=== PATIENT | female | born 1965 | race Caucasian/White ===

== ENCOUNTER 2016-11-02 19:47 | Emergency (ER) | payer SELFPAY ==
--- NOTE | 2016-11-02 20:40 | ER Document Report ---
ED Psych Disorder / Suicide - General Chief Complaint: Psych Problem Stated Complaint: IVC WITH PAPERS Time Seen by Provider: 11/02/16 20:04 Mode of Arrival: Ambulatory Information source: Patient, Law Enforcement Notes: This is a 51-year-old female with a history of COPD who presents with IVC paperwork for suicidal ideation. Law-enforcement states that they were called out to the house yesterday after a domestic argument and were told that patient was threatening to cut herself with her throat with a knife. Upon their arrival patient ran into the durán. They did find a knife in the yard. Per the officer, [facility] was contacted by the family today. [employer] acoustical material worker did go out to the house to evaluate the patient and then after her evaluation IVC paperwork was obtained to the police magistrate initiated by [facility]. Patient at this time states that she has no suicidal ideation. She does admit to alcohol use and Xanax use today. TRAVEL OUTSIDE OF THE [place] IN LAST 30 DAYS: No Past Medical History - Social History Smoking Status: Current Every Day Smoker Frequency of alcohol use: Occasional Drug Abuse: Marijuana Family History: Reviewed & Not Pertinent Patient has suicidal ideation: Yes Patient has homicidal ideation: No Renal/ Medical History: Denies: Hx Peritoneal Dialysis Review of Systems - Review of Systems Constitutional: denies: Chills, Fever EENT: No symptoms reported Cardiovascular: No symptoms reported. denies: Chest pain, Palpitations Respiratory: No symptoms reported Gastrointestinal: No symptoms reported Genitourinary: No symptoms reported Musculoskeletal: No symptoms reported Skin: Other - sunburn Hematologic/Lymphatic: No symptoms reported Neurological/Psychological: See HPI Physical Exam - Vital signs Vitals: Temp Pulse Resp BP Pulse Ox 98.3 F 81 18 108/76 95 11/02/16 19:56 11/02/16 19:56 11/02/16 19:56 11/02/16 19:56 11/02/16 19:56 - Notes Notes: PHYSICAL EXAMINATION: GENERAL: Thin, disheveled adult female with sunburn on her arms, calm and conversant, no acute distress HEAD: Atraumatic, normocephalic. EYES: Pupils equal round and reactive to light, extraocular movements intact, sclera anicteric, conjunctiva are normal. NECK: Normal range of motion, supple without lymphadenopathy LUNGS: Breath sounds clear to auscultation bilaterally and equal. No wheezes rales or rhonchi. HEART: Regular rate and rhythm without murmurs ABDOMEN: Soft, nontender, normoactive bowel sounds. EXTREMITIES: Normal range of motion, no pitting or edema. NEUROLOGICAL: Cranial nerves grossly intact. No gross focal motor or sensory deficits appreciated. PSYCH: Normal mood, somewhat agitated affect. No AVH. Denies current SI/HI SKIN: Warm, Dry, sunburn noted to dorsal BUE Course - Re-evaluation Re-evalutation: 11/02/16 20:40 Patient presents with IVC paperwork that was initiated by mobile [employer] today. Will obtain screening labs and patient will receive further mental health evaluation the morning. - Vital Signs Vital signs: Temp Pulse Resp BP Pulse Ox 98.3 F 81 18 108/76 95 11/02/16 19:56 11/02/16 19:56 11/02/16 19:56 11/02/16 19:56 11/02/16 19:56 - Laboratory Result Diagrams: 11/02/16 20:15 11/02/16 20:15 Discharge - Discharge Clinical Impression: Alcohol abuse Suicide gesture Qualifiers: Encounter type: initial encounter Qualified Code(s): X83.8XXA - Intentional self-harm by other specified means, initial encounter Condition: Stable Disposition: PSYCH HOSP/UNIT
[2016-11-02 20:47] LABS: ABSOLUTE BASOPHILS # (AUTO) 0.2 10^3/uL (0.0-0.2); ABSOLUTE EOSINOPHILS # (AUTO) 0.1 10^3/uL (0.0-0.6); ABSOLUTE LYMPHOCYTES (AUTO) 0.9 10^3/uL (0.5-4.7); ABSOLUTE MONOCYTES (AUTO) 0.4 10^3/uL (0.1-1.4); ABSOLUTE NEUT (AUTO) 5.1 10^3/uL (1.7-8.2); BASOPHILS % (AUTO) 2.8 % (0-2); EOSINOPHILS % (AUTO) 1.8 % (0-6); HEMATOCRIT 47.9 % (36.0-47.0); HEMOGLOBIN 16.1 g/dL (12.0-15.5); HGB HCT DIFFERENCE 0.4; LYMPHOCYTES % (AUTO) 12.8 % (13-45); MEAN CORPUSCULAR HEMOGLOBIN 36.4 pg (27.0-33.4); MEAN CORPUSCULAR HGB CONC 33.6 g/dL (32.0-36.0); MEAN CORPUSCULAR VOLUME 108 fl (80-97); MONOCYTES % (AUTO) 6.4 % (3-13); RED BLOOD COUNT 4.43 10^6/uL (3.72-5.28); RED CELL DISTRIBUTION WIDTH 14.4 % (11.5-14.0); SEGMENTED NEUTROPHILS % (AUTO) 76.2 % (42-78); WHITE BLOOD COUNT 6.7 10^3/uL (4.0-10.5)
[2016-11-02 20:51] LABS: APPEARANCE,URINE CLEAR; BILIRUBIN,URINE NEGATIVE (NEGATIVE); GLUCOSE, URINE NEGATIVE (NEGATIVE); KETONES,URINE NEGATIVE (NEGATIVE); LEUKOCYTE ESTERASE,URINE NEGATIVE (NEGATIVE); NITRITE,URINE NEGATIVE (NEGATIVE); PROTEIN,URINE NEGATIVE (NEGATIVE); URINE SPECIFIC GRAVITY 1.002; UROBILINOGEN,URINE NEGATIVE mg/dL (<2.0)
[2016-11-02 20:56] LABS: ALANINE AMINOTRANSFERASE 38 U/L (9-52); ALBUMIN 4.9 g/dL (3.5-5.0); ALCOHOL 116 mg/dL (NONE DETECTED); ALKALINE PHOSPHATASE 112 U/L (38-126); ANION GAP 14 (5-19); ASPARTATE AMINO TRANSFERASE 42 U/L (14-36); BILIRUBIN,DIRECT 0.3 mg/dL (0.0-0.4); BILIRUBIN,TOTAL 0.6 mg/dL (0.2-1.3); BLOOD UREA NITROGEN 7 mg/dL (7-20); CALCIUM 9.6 mg/dL (8.4-10.2); CARBON DIOXIDE 25 mmol/L (22-30); CHLORIDE 106 mmol/L (98-107); CREATINE KINASE 309 U/L (30-135); GLUCOSE 69 mg/dL (75-110); POTASSIUM 4.1 mmol/L (3.6-5.0); SODIUM 144.8 mmol/L (137-145); TOTAL PROTEIN 7.9 g/dL (6.3-8.2)
[2016-11-02 21:10] LABS: URINE BARBITURATES SCREEN NEGATIVE; URINE METHADONE SCREEN NEGATIVE; URINE OPIATES LOW NEGATIVE; URINE PHENCYCLIDINE SCREEN NEGATIVE
[2016-11-02] MEDS ORDERED: CHLORPROMAZINE HCL INJ 25 MG/1 ML AMPULE IM ONE (21:10)
[2016-11-02 21:24] LABS: CREATINE KINASE MB 2.42 ng/mL (<4.55); TROPONIN I < 0.012 ng/mL
[2016-11-03] MEDS ORDERED: NICOTINE 21 MG/24 HR PATCH.TD24 TD ONE (11:22)
--- NOTE | 2016-11-03 11:22 | ER Document Report ---
Doctor's Note Notes: 11/03/16 11:20 Rounds: Chart reviewed and patient interview. Patient is being evaluated for suicidal thoughts. Vital signs of all been essentially normal. Lab studies were normal except for hemoglobin of 16.1 (patient smokes 2 packs of cigarettes a day), CK of 309, alcohol level 116, and positive benzos on drug screen. Patient is not sure if she feels suicidal today. Patient appears to be medically stable for transfer or discharge. Brian Gonzalez MD
--- NOTE | 2016-11-03 13:10 | ER Document Report ---
ED Psych Disorder / Suicide - General Chief Complaint: Psych Problem Stated Complaint: IVC WITH PAPERS Time Seen by Provider: 11/03/16 10:45 Mode of Arrival: Ambulatory Information source: Patient TRAVEL OUTSIDE OF THE [place] IN LAST 30 DAYS: No - HPI Patient complains to provider of: Agitated, Other - History of verbal aggression and anger problems Onset: Just prior to arrival Onset was: Sudden Quality of pain: No pain Severity: Mild Pain Level: Denies Suicide Risk Factors: Chronic illness, Frightened friends/family, Substance abuse Situational problems related to: Other - Recently relocated to [place] from [place] Normal mood: Yes Associated symptoms: Normal affect, Normal mood Similar symptoms previously: Yes Recently seen / treated by doctor: No Notes: Met with Patient who reported she recently came from [place] to visit her eldest who is on leave from the [employer]. She reported yesterday she took her last Xanax in the morning and then started drinking beer around noon. She indicated her sister was present and they both saw a snake, which she killed with a PVC pipe. She reported her sister began to get upset and tripped and fell when she stood, causing a laceration above her eye, at which pint she blamed the Patient. Patient reported an argument promptly ensued so she ran into the durán because she is generally blamed for everything and she was trying to avoid the conflict. Patient reported she called her girlfriend and relayed her frustration regarding her current situation and made the comment " What am I supposed to do? Slit my throat, walk to the airport?" which Patient reports was general venting. 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 She reported seeing a counselor on one occasion for her "anger issues" but never went back. She indicated she continues to see her PCP Dr. Crowe in [place] who prescribes her Zoloft 100 mg and Xanax 2 mg bid-tid. She reported she was taking the Xanax QID but is trying to cut down. She reported the Xanax and Zoloft are not helping and desires to discontinue both. Patient reported she took her last Xanax yesterday morning (2 mg) and drank 4-5 12 ounce beers. She indicated she drinks regularly 6-12 beers 2-3 times per week and smokes marijuana daily, though she has not smoked any since October 20. She also reported a previous opiate addiction 2 years ago and used methadone to assist with withdrawal. She reported being clean from opiates for 2 years. Patient was alert and oriented to person, place, time, and situation. Mood was euthymic with congruent affect. She denied suicidal / homicidal ideation, intent or plan. She denied psychosis and no delusions were noted. Thought processes were linear, organized, and rational. Conversational speech was pressured and loud. Intellectual abilities were estimated within the average range. Recent and remote memory were intact. Attention and concentration were intact. Insight, judgment, and impulse control were fair. Impression / Plan: Patient is recommended for rescind of IVC. She denies suicidal ideation, intent or plan. 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 She reported her sister became upset when she killed a snake. She reported the comment was taken out context by her friend and likely because of her alcohol intoxication. Patient reported she is open to new medications and a local provider. She is aware she can return to the ED if needed. ED Physician in agreement with recommendations and disposition. - Related Data Allergies/Adverse Reactions: No Known Allergies Allergy (Unverified 11/02/16 20:38) Past Medical History - General Information source: Patient, Law Enforcement - Social History Smoking Status: Current Every Day Smoker Chew tobacco use (# tins/day): No Frequency of alcohol use: Occasional Drug Abuse: Marijuana Family History: Reviewed & Not Pertinent Patient has suicidal ideation: Yes Patient has homicidal ideation: No Pulmonary Medical History: Reports: Hx COPD Renal/ Medical History: Denies: Hx Peritoneal Dialysis Psychiatric Medical History: Reports: Hx Depression - anxiety Past Surgical History: Reports: Hx Gynecologic Surgery - cryo - Immunizations Hx Diphtheria, Pertussis, Tetanus Vaccination: Yes Physical Exam - Vital signs Vitals: Temp Pulse Resp BP Pulse Ox 98.3 F 81 18 108/76 95 11/02/16 19:56 11/02/16 19:56 11/02/16 19:56 11/02/16 19:56 11/02/16 19:56 Course - Vital Signs Vital signs: Temp Pulse Resp BP Pulse Ox 98.3 F 77 18 105/70 98 11/02/16 19:56 11/03/16 03:09 11/03/16 03:09 11/03/16 03:09 11/03/16 03:09 - Laboratory Result Diagrams: 11/02/16 20:15 11/02/16 20:15 Laboratory results interpreted by me: 11/02/16 11/02/16 20:15 20:15 Hgb 16.1 H Hct 47.9 H MCV 108 H MCH 36.4 H RDW 14.4 H Lymphocytes % 12.8 L Basophils % 2.8 H Glucose 69 L AST 42 H Creatine Kinase 309 H Salicylates < 1.0 L Acetaminophen < 10 L Discharge - Discharge Clinical Impression: Alcohol abuse, Suicide gesture, Benzodiazepine abuse, continuous Condition: Stable Disposition: HOME, SELF-CARE Additional Instructions: Counseling Services It has been recommended that you seek professional counseling to assist you with the stresses that you are experiencing. Most people at some time in their lives experience personal problems with which they need help. Pride and feeling that one can't be helped keep a lot of people from the benefits of counseling. You have been provided a handout with the phone numbers of the mental health providers in your community, and you are instructed to follow up on Friday November 04, 2016. Suicidal ideation is a common medical term for thoughts about suicide, which may be as detailed as a formulated plan, without the suicidal act itself. Although most people who undergo suicidal ideation do not commit suicide, some go on to make suicide attempts. The range of suicidal ideation varies greatly from fleeting to detailed planning, role playing, and unsuccessful attempts. While thoughts about suicide are common, most people do not carry out serious actions to commit suicide. However, based upon your evaluation and discussion with you, we believe you are currently at risk to act upon your thoughts of suicide. Therefore, you will be admitted to a facility for inpatient care.
[2016-11-03 14:34] VITALS: BP 120/74
--- NOTE | 2016-11-04 09:32 | EKG REPORT ---
SEVERITY:- ABNORMAL ECG - SINUS RHYTHM ST ELEVATION SUGGESTS PERICARDITIS EARLY REPOL CHANGES : Confirmed by: Rosaura Saunders 04-Nov-2016 09:32:22
== END 2016-11-03 16:45 | disposition home or self-care (01) ==
LOC: ER 19:47
DX: F10.129 Alcohol abuse with intoxication, unspecified (principal); F13.10 Sedative, hypnotic or anxiolytic abuse, uncomplicated; Y90.5 Blood alcohol level of 100-119 mg/100 ml; F32.9 Major depressive disorder, single episode, unspecified; F41.9 Anxiety disorder, unspecified; R45.851 Suicidal ideations; F17.210 Nicotine dependence, cigarettes, uncomplicated; F11.21 Opioid dependence, in remission; J44.9 Chronic obstructive pulmonary disease, unspecified; Z79.899 Other long term (current) drug therapy
CPT/HCPCS: 93005; 99284; 96372; 36415; 82553; 80307 ×4; 82550; 85025; 80053; 81001; 84484; 93010; J3230